=== PATIENT | male | born 1945 | race Caucasian/White ===

== ENCOUNTER 2019-12-22 11:22 | Outpatient (CLI) | payer MEDICARE, BC, SELFPAY ==
--- NOTE | ~2019-12-22 | XR_ITS ---
XR ribs RT 2V DATE: 12/22/2019 11:51 INDICATION: Fall. Right lower anterior rib pain TECHNIQUE: 3 views COMPARISON: None FINDINGS: There is a minimally displaced anterior right eighth rib fracture. No other rib fracture is noted. No pneumothorax or pleural effusion is evident. IMPRESSION: Anterior right eighth rib fracture Reviewed, dictated and finalized at location B. [employer]
== END 2019-12-22 11:23 | disposition home or self-care (01) ==
LOC: ANHIMG 11:32
PROVIDERS: PCP Family Medicine; Visit Provider Family Medicine
DX: S22.31XA Fracture of one rib, right side, initial encounter for closed fracture (principal); W19.XXXA Unspecified fall, initial encounter
CPT/HCPCS: 71100

== ENCOUNTER 2020-06-20 11:20 | Outpatient (CLI) | payer MEDICARE, BC, SELFPAY ==
--- NOTE | ~2020-06-20 | XR_ITS ---
EXAMINATION: XR ankle RT min 3V INDICATION: Lower limb edema TECHNIQUE: Four views of the left ankle are obtained. COMPARISON: None available FINDINGS: Bone alignment is normal. There is no fracture. Calcified atherosclerosis is noted. There i s mild soft tissue swelling of the ankle. IMPRESSION: 1. No acute osseous abnormality. Reviewed, dictated and finalized at location A.
--- NOTE | ~2020-06-20 | XR_ITS ---
EXAMINATION: XR foot RT min 3V DATE: 06/20/2020 11:47 INDICATION: Localized edema TECHNIQUE: Dorsoplantar, lateral, and 2 oblique views of the right foot were obtained. COMPARISON: None. FINDINGS: There is no fracture. 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 There is mild osteoarthritis in the remaining interphalangeal joints as well as at the first meta tarsophalangeal joint. The soft tissues are unremarkable. IMPRESSION: 1. No acute osseous abnormality. Reviewed, dictated and finalized at location A.
== END 2020-06-20 11:21 | disposition home or self-care (01) ==
PROVIDERS: Visit Provider Family Medicine
DX: R60.0 Localized edema (principal)
CPT/HCPCS: 73610; 73630

== ENCOUNTER 2020-06-21 15:46 | Outpatient (CLI) | payer MEDICARE, BC, SELFPAY ==
--- NOTE | ~2020-06-21 | US_ITS ---
EXAMINATION: US venous doppler LE RT EXAM DATE: 06/21/2020 16:21 INDICATION: Right leg edema. TECHNIQUE: Multiple grayscale, color flow and Doppler images of the right lower extremity deep venous system were obtained and reviewed. There is no prior study for comparison. FINDINGS: The right common femoral, femoral and profunda veins demonstrate normal color flow, respira tory variation, augmentation and compressibility. Compressibility, color flow confirmed within the r ight popliteal, posterior tibial, peroneal, and greater saphenous veins. IMPRESSION: 1. No right lower extremity deep venous thrombosis. Reviewed, dictated and finalized at location B.
== END 2020-06-21 15:47 | disposition home or self-care (01) ==
LOC: ANHIMG 15:53
PROVIDERS: PCP Family Medicine; Visit Provider Family Medicine
DX: R60.0 Localized edema (principal)
CPT/HCPCS: 93971

== ENCOUNTER 2021-06-06 12:53 | Outpatient (CLI) | payer MEDICARE, BC, SELFPAY ==
--- NOTE | ~2021-06-06 | XR_ITS ---
XR lumbar spine min 4V DATE: 06/06/2021 13:21 INDICATION: Lower back pain TECHNIQUE: AP, bilateral oblique, lateral and coned lateral lumbosacral views COMPARISON: None FINDINGS: Diffuse osteopenia. Mild dextro scoliosis of the lumbar spine. No fracture or bone destruction of the lumbar spine. The lumbar pedicles are intact. There is multilevel degenerative disc disease, most pronounced at L1-2 and L2-3. There is associated mild retrolisthesis at L3-4 and L4-5. The sacroiliac joints are intact. Abdominal aortic calcification is noted. IMPRESSION: Osteopenia Mild dextro scoliosis Multilevel degenerative disc disease, with associated retrolisthesis at L2-3 and L3-4 Reviewed, dictated and finalized at location B. IMPRESSION: Osteopenia Mild dextro scoliosis Multilevel degenerative disc disease, with associated retrolisthesis at L2-3 an d L3-4
== END 2021-06-06 12:54 | disposition home or self-care (01) ==
PROVIDERS: PCP Family Medicine; Visit Provider Family Medicine
DX: M85.88 Other specified disorders of bone density and structure, other site (principal); M51.36 Other intervertebral disc degeneration, lumbar region
CPT/HCPCS: 72110